=== PATIENT | male | born 1970 | race Caucasian/White ===

== ENCOUNTER 2020-04-13 13:15 | Emergency (ER) | payer OTHER ==
[~2020-04-13] VITALS: Ht 167.6 cm; Wt 67.1 kg
[~2020-04-13 13:15] MED LIST: ALBMDI INH; FLUT1DIS3 IH; LEVO500T89 PO; METR500T PO
[2020-04-13 13:16] VITALS: BP_SYST 99
[2020-04-13] MEDS ORDERED: NACL 0.9% 1,000 ML IV ONE (13:29)
[2020-04-13] MEDS ORDERED: KETOROLAC TROMETHAMINE 30 MG VIAL IVP ONE (13:30)
--- NOTE | 2020-04-13 13:30 | NUR ---
Placed in room 5. Provider made aware.
--- NOTE | 2020-04-13 13:32 | NUR ---
In [facility] with side rails up. Placed in gown. Pt denies pain at this time. Stated that he only has pain when he sits up.
--- NOTE | 2020-04-13 13:35 | NUR ---
ER Dr. Stroud at bedside examining patient.
--- NOTE | 2020-04-13 13:41 | NUR ---
Patient given written and verbal discharge instructions and verbalizes understanding. ER MD discussed with patient the results and treatment provided. Patient in stable condition. ID arm band removed. IV catheter removed intact and dressing applied, no active bleeding. Patient educated on pain management and to follow up with PMD. Opportunity for questions provided and answered. Medication side effect fact sheet provided.
[2020-04-13 13:43] VITALS: BP_SYST 99
== END 2020-04-13 13:43 | disposition home or self-care (01) ==
LOC: SED 13:15
DX: S39.011A Strain of muscle, fascia and tendon of abdomen, initial encounter (principal); Z88.5 Allergy status to narcotic agent; Z79.899 Other long term (current) drug therapy; X50.9XXA Other and unspecified overexertion or strenuous movements or postures, initial encounter; Y93.89 Activity, other specified; Y92.89 Other specified places as the place of occurrence of the external cause; Y99.8 Other external cause status
CPT/HCPCS: 81002; 96374; 99282; 99283